=== PATIENT | female | born 1970 | race Hispanic/Latino ===

== ENCOUNTER 2017-04-26 19:16 | Emergency (ER) | payer MEDICARE ==
[2017-04-26 20:08] VITALS: BP 116/73
[2017-04-26] MEDS ORDERED: ROXICODONE PO ONE (23:07)
[2017-04-26] MEDS ORDERED: BENADRYL IM ONE (23:08)
--- NOTE | 2017-04-26 23:13 | Emergency Department Report ---
ED Rash HPI - HPI Chief Complaint: Skin Rash Stated Complaint: POSS SHINGLES Time Seen by Provider: 04/26/17 23:07 Duration: Today Location: Back Rash Symptoms: Yes Itching, Yes Blistering, No Facial Swelling, No Tongue/Oral Swelling, No Breathing Difficulties, No Choking Sensation, No Wheezing/Dyspnea, No Peeling, No Fever, No Lightheaded, No Malaise, No Myalgias Severity: mild Other History: 46-year-old female past medical history chronic back pain presents with complaint of 2-3 days of unilateral rash which began on back and has radiated towards flank. Patient denies fever chills nausea or vomiting. Patient states that rash is blistery. States it is very itchy and painful. ED Review of Systems ROS: Stated complaint: POSS SHINGLES Other details as noted in HPI Constitutional: denies: chills, fever Eyes: denies: eye pain, eye discharge, vision change ENT: denies: ear pain, throat pain Respiratory: denies: cough, shortness of breath, wheezing Cardiovascular: denies: chest pain, palpitations Endocrine: no symptoms reported Gastrointestinal: denies: abdominal pain, nausea, diarrhea Genitourinary: denies: urgency, dysuria, discharge Musculoskeletal: denies: back pain, joint swelling, arthralgia Skin: as per HPI, lesions (vesicles on skin). denies: rash Neurological: denies: headache, weakness, paresthesias Psychiatric: denies: anxiety, depression Hematological/Lymphatic: denies: easy bleeding, easy bruising ED Past Medical Hx - Past Medical History Previous Medical History?: Yes Additional medical history: SPINAL / CHRONIC PAIN - Surgical History Past Surgical History?: Yes Hx Pacemaker: Yes Hx Cholecystectomy: Yes Additional Surgical History: GASTRIC SLEEVE / D&C / BREAST LIFT - Social History Smoking Status: Current Every Day Smoker Substance Use Type: None - Medications Home Medications: Home Medications Medication Instructions Recorded Confirmed Last Taken Type Acyclovir [Zovirax Tab] 800 mg PO QID #35 tab 04/26/17 Unknown Rx Naproxen [Naprosyn TAB] 375 mg PO BID PRN #20 tablet 04/26/17 Unknown Rx oxyCODONE [Roxicodone TAB] 5 mg PO Q6HR PRN #12 tablet 04/26/17 Unknown Rx Rash Exam - Exam General: Vital signs noted. No distress. Alert and acting appropriately. HEENT: No Periorbital Edema, No Conjuctival Injection, No Chemosis, No Perioral Edema, No Tongue Edema, No Uvular Edema, No Compromised Airway, No Drooling Lungs: Yes Good Air Exchange (Normal Breath Sounds), No Wheezes, No Ronchi, No Stridor, No Cough, No Labored Respirations, No Retractions, No Use of Accessory Muscles, No Other Abnormal Lung Sounds Heart: Yes Regular, No Murmur Skin: Yes Other (vesicular rash in dermatomal pattern along back and flank) Other: Positive: Abdomen Normal, Neurologic Normal, Musculoskeletal Normal ED Course Vital Signs 04/26/17 20:04 Temperature 97.9 F Pulse Rate 78 Respiratory 16 Rate Blood Pressure 116/73 O2 Sat by Pulse 100 Oximetry ED Medical Decision Making - Medical Decision Making A/P: Shingles rash 1-symptoms began just over 72 hours ago will give patient a course of acyclovir 800 mg 5 times a day 7 days 2-short course of naproxen and [place] when necessary 3-patient states she takes gabapentin for chronic back pain. I advised the patient to continue this medicine as this may help with the neuropathic pain associated with shingles 4-follow-up with primary care doctor. I advised the patient to return to the ED for any high fevers chills severe cough or spread of rash to face, eyes or genitals Critical care attestation.: If time is entered above; I have spent that time in minutes in the direct care of this critically ill patient, excluding procedure time. ED Disposition Clinical Impression: Shingles rash Qualifiers: Herpes zoster complications: without complications Qualified Code(s): B02.9 - Zoster without complications Disposition: DC-01 TO HOME OR SELFCARE Is pt being admited?: No Does the pt Need Aspirin: No Condition: Stable Instructions: Herpes Zoster (ED) Prescriptions: Acyclovir [Zovirax Tab] 800 mg PO QID #35 tab Naproxen [Naprosyn TAB] 375 mg PO BID PRN #20 tablet PRN Reason: Pain oxyCODONE [Roxicodone TAB] 5 mg PO Q6HR PRN #12 tablet PRN Reason: Pain Referrals: SUAD MULTANI MD [Staff Physician] - 3-5 Days Forms: Accompanied Note, Work/School Release Form(ED) Time of Disposition: 23:13
== END 2017-04-26 23:30 | disposition home or self-care (01) ==
LOC: ED 19:16
DX: B02.9 Zoster without complications (principal); F17.200 Nicotine dependence, unspecified, uncomplicated
CPT/HCPCS: 96372; 99282; J1200